=== PATIENT | female | born 1980 | race Caucasian/White ===

== ENCOUNTER 2017-08-31 19:54 | Emergency (ER) | payer OTHER ==
[~2017-08-31] VITALS: Ht 162.6 cm; Wt 95.3 kg
[~2017-08-31 19:54] MED LIST: LOSARTAN-HCTZ1 EAC2 PO
[2017-08-31] MEDS ORDERED: LANTUS SOL100 UNIT/1 (20:17)
[2017-08-31] MEDS ORDERED: DIAMOX COM (20:18)
== END 2017-08-31 22:21 | disposition home or self-care (01) ==
LOC: ER 19:54
DX: J11.1 Influenza due to unidentified influenza virus with other respiratory manifestations (principal); B34.9 Viral infection, unspecified